=== PATIENT | female | born 2000 | race Hispanic/Latino ===

== ENCOUNTER 2025-03-31 22:12 | Emergency (ER) | payer SELFPAY ==
--- NOTE | ~2025-03-31 | XR_ITS ---
CHEST RADIOGRAPH CLINICAL HISTORY: RUQ abd pain . COMPARISON: None available TECHNIQUE: Single portable view of the chest. FINDINGS The cardiomediastinal silhouette is unremarkable. The lungs are clear. IMPRESSION: No focal infiltrate or effusion. Reviewed, dictated and finalized at location A.
--- NOTE | ~2025-03-31 | US_ITS ---
Pelvic ultrasound. Clinical History: Right ovarian torsion Technique: Realtime transabdominal and transvaginal scanning of the pelvis was performed. Color flow Doppler and Doppler spectral analysis were performed. Findings: The uterus is anteverted. The endometrial stripe has a thickness of [address] No focal mass is identified. The right ovary measures 3.2 x 1.0 x 2.4 cm. Questionable right adnexal mass or other indeterminate lesion adjacent to the right ovary with extensive internal flow on color imaging. Vascular flow present in the right ovary and color Doppler imaging. The left ovary is not visualized. No significant left ovarian or adnexal mass is seen. There is no evidence of free fluid in the cul de sac. Impression: Unremarkable right ovary. Left ovary not visualized. Questionable right adnexal mass with indeterminate lesion adjacent to the right ovary with extensive vascular flow within it on color imaging. This corresponds with the hyperdense/enhancing lesion on CT. Consider follow-up pre and postcontrast MR to further evaluate. IUD in place. Reviewed, dictated and finalized at location . Impression: Unremarkable right ovary. Left ovary not visualized. Questionable right adnexal mass with indeterminate lesion adjacent to the right ovary with extensive vascular flow within it on color imaging. This correspond s with the hyperdense/enhancing lesion on CT. Consider follow-up pre and postco ntrast MR to further evaluate. IUD in place.
--- NOTE | ~2025-03-31 | CT_ITS ---
CLINICAL INDICATION: Right upper quadrant pain COMPARISON: None. TECHNIQUE: Multiple contiguous axial images of the abdomen and pelvis were performed following the administration of with 100 mL Omnipaque-350 intravenous contrast The dose-length product (DLP) was 378.98 mGy-cm. Automated exposure control and iterative reconstruction technique were employed. FINDINGS/OBSERVATIONS: Visualized lower thorax: The bilateral lung bases are clear. The heart is of normal size, without pericardial effusion. Small hiatal hernia is present. Liver: The liver demonstrates homogeneously decreased enhancement and is enlarged measuring 20 cm in longitudinal dimension. Gallbladder and biliary system: The gallbladder is only minimally distended, and otherwise unremarkable. Pancreas: The pancreas enhances homogeneously without ductal dilatation. Spleen: The spleen enhances homogeneously and is not enlarged. Kidneys: The bilateral kidneys enhance symmetrically without hydronephrosis or renal calculi. Adrenal glands: Unremarkable. Gastrointestinal tract: The rectosigmoid colon courses through the inflammatory change within the pelvis, but is decompressed, and otherwise unremarkable. Appendix: The air-filled appendix is of normal caliber (axial series, images 125 - 144). Vasculature: Unremarkable. Lymph nodes: No pathologically enlarged or morphologically suspicious lymph nodes within the retroperitoneum or at the root of the mesentery. Pelvic structures: The bladder demonstrates markedly thickened solorzano and significant surrounding inflammatory change for which cystitis is suspected. The right ovary is markedly hyperemic and poorly delineated significant surrounding inflammatory change. The uterus is retroverted and antral flexed. An intrauterine device is identified. A tubular shaped focus absence of attenuation within the deep pelvis, representing a feminine hygiene device, consistent with patient's history. Body wall and musculoskeletal: No significant degenerative disease within the lower thoracic or lumbosacral spine. IMPRESSION: Markedly thickened bladder wall with significant surrounding inflammatory change or cystitis is suspected. The right ovary is markedly hyperemic poorly delineated on CT examination. Fatty infiltration of an enlarged liver. Gallbladder and appendix are unremarkable. Reviewed, dictated and finalized at location A. IMPRESSION: Markedly thickened bladder wall with significant surrounding inflammatory reagan e or cystitis is suspected. The right ovary is markedly hyperemic poorly delineated on CT examination. Fatty infiltration of an enlarged liver. Gallbladder and appendix are unremarkable.
[2025-03-31 22:30] VITALS: BP 148/76; PULSE 90; RESP 15; TEMP 36.7; O2SAT 100
[2025-03-31 22:32] VITALS: BP 148/76; PULSE 91; RESP 20; O2SAT 100
[2025-03-31 22:51] LABS: BEDSIDEPREGUCG Negative (Negative)
[2025-03-31 22:56] LABS: Hematocrit 37.3 % (37.0-47.0); Hemoglobin 12.1 g/dL (12.0-15.0); Immature Granulocyte Percent A 0.6 % (0-0.5); Lymphocytes Absolute Auto 1.73 K/mm3 (0.9-3.2); Mean Corpuscular HGB Conc 32.4 g/dl (32-36); Mean Corpuscular Hemoglobin 30.5 pg (26-34); Mean Corpuscular Volume 94.0 fl (80-100); Nucleated Red Blood Cells Absolute Auto 0.000 K/mm3 (0.0-0.012); Nucleated Red Blood Cells Perc 0.0 % (0.0-0.2); Platelet Count Result 462 k/mm3 (150-375); Red Blood Count 3.97 M/mm3 (4.2-5.4); White Blood Count 11.0 K/mm3 (4.5-10.0)
[2025-03-31 23:01] LABS: Add Urine Microscopic? YES; Appearance Urine Clear (Clear); Glucose Urine UA Negative (Negative); Leukocyte Esterase Ur 1+ LEU/UL (Negative); Nitrate Urine Negative (Negative); Non Pathogenic Casts 0-2; Specific Grav Ur 1.026 (1.001-1.035)
[2025-03-31 23:06] LABS: Alanine Aminotransferase 26 U/L (6-35); Albumin Level 4.2 g/dL (3.5-5.1); Alkaline Phosphatase 87 U/L (38-126); Anion Gap 9 mmol/L (4-12); Aspartate Amino Transferase 38 U/L (14-36); Bilirubin,Total 0.3 mg/dL (0.2-1.3); Blood Urea Nitrogen 13 mg/dL (7-17); Calcium 9.0 mg/dL (8.4-10.2); Carbon Dioxide 23 mmol/L (22-30); Chloride 107 mmol/L (98-107); Estimated Glomerular Filt Rate > 60; Glucose 169 mg/dL (65-110); Lipase 52 U/L (23-300); Potassium 3.6 mmol/L (3.4-5.0); Sodium 139 mmol/L (137-145); Total Protein 8.0 g/dL (6.3-8.2)
[2025-03-31 23:15] VITALS: PULSE 81; RESP 14; O2SAT 98
--- NOTE | 2025-03-31 23:29 | ED.ABDPAIN ---
HPI - Abdominal Pain General Chief Complaint: Abdominal Pain <Sommer Nunn PA-C - Last Filed: 04/01/25 18:38> Stated Complaint: RUQ pain since this AM <Sommer Nunn PA-C - Last Filed: 04/01/25 18:38> Time Seen by Provider: 03/31/25 22:39 <Sommer Nunn PA-C - Last Filed: 04/01/25 18:38> History of Present Illness HPI narrative: 24-year-old Indonesian-speaking female with no reported past medical history presents emergency department for right upper quadrant abdominal pain x1 day and irregular menstrual cycle for the past month. Interpretive services used throughout patient's visit. Patient states for the past 2 weeks she has had abdominal ?inflammation? and bloating. This morning she began developing focal pain to the right upper quadrant she describes as a cramping sensation that is worse with deep inspiration. She does not believe her pain is affected by eating or drinking. She denies associated nausea, vomiting or diarrhea. Her last bowel movement was yesterday normal. She denies prior abdominal surgeries. She does endorse a cough and congestion. She denies recent surgeries or hospitalizations, fever, lower extremity edema, history of VTE, hemoptysis. Patient also notes she has had 2 menstrual cycles within the past month which is abnormal for her. She notes that she has a IUD in place that was placed 6 years ago. States she is due to have her IUD removed in February of 2026. She notes that she has had her IUD she normally has a period every 2-3 months, however she has had 2 periods within the past month which is abnormal. She states she had a 4 day period about 2 weeks ago and started her period again yesterday. She notes that she worse tampons but has not been saturating her tampons an hour. She also notes that she has had some ?itchiness? with urinating and suprapubic abdominal pain. She denies dysuria. She denies abnormal vaginal discharge or concern for STDs, however does admit that she is sexually active with 1 partner within the past 6 months and would like to be checked for STDs. She is not currently established with an functional architect. <Sommer Nunn PA-C - Last Filed: 04/01/25 18:38> Related Data Allergies/Adverse Reactions: Allergies Allergy/AdvReac Type Severity Reaction Status Date / Time No Known Allergies Allergy Verified 03/31/25 22:14 <Sommer Nunn PA-C - Last Filed: 04/01/25 18:38> Review of Systems Review of Systems: All systems reviewed & are unremarkable except as noted in HPI and below <Sommer Nunn PA-C - Last Filed: 04/01/25 18:38> Exam Narrative: GENERAL: Well-appearing, well-nourished, and in no acute distress. HEAD: Normocephalic, atraumatic. EYES: PERRLA and EOMI. ENT: Nares clear, no rhinorrhea or epistaxis. Mucous membranes moist. NECK: Supple. CHEST: Clear to auscultation. No respiratory distress. HEART: Regular rate and rhythm. No murmur heard. Normal peripheral pulses. ABDOMEN: Normoactive bowel sounds. Abdomen soft with tenderness to the right upper quadrant and suprapubic region. Negative Rao sign. No rebound or rigidity. No CVA tenderness : Chaperoned by YING Cardoza: Normal external genitalia. Mild bleeding in the vaginal vault. Cervical os is closed with IUD strings in expected position. No abnormal vaginal discharge. No lesions. No significant CMT, adnexal masses or tenderness. EXTREMITIES: Normal range of motion. No edema. SKIN: Warm, dry, no rash. NEURO: No focal deficits. Alert and oriented x3 <Sommer Nunn PA-C - Last Filed: 04/01/25 18:38> Course LEACH RUNNER/PA Physician Supervision This visit was performed by both a physician and an APC. For this patient encounter, I reviewed the LEACH RUNNER or PA documentation, treatment plan, and medical decision making and had [id number] time with this patient. I performed all aspects of the MDM as documented. <Jean Cruz MD - Last Filed: 04/01/25 05:24> Vital Signs Vital signs: Vital Signs Temperature 98.0 F 03/31/25 22:30 Pulse Rate 90 03/31/25 22:30 Respiratory Rate 15 03/31/25 22:30 Blood Pressure 148/76 H 03/31/25 22:30 Pulse Oximetry 100 03/31/25 22:30 Oxygen Delivery Room Air 03/31/25 22:30 Temperature 98.0 F 03/31/25 22:30 Pulse Rate 78 04/01/25 05:16 Respiratory Rate 16 04/01/25 05:16 Blood Pressure 112/78 04/01/25 05:16 Pulse Oximetry 99 04/01/25 05:16 Oxygen Delivery Room Air 03/31/25 22:30 <Sommer Nunn PA-C - Last Filed: 04/01/25 18:38> Vital Signs Temperature 98.0 F 03/31/25 22:30 Pulse Rate 90 03/31/25 22:30 Respiratory Rate 15 03/31/25 22:30 Blood Pressure 148/76 H 03/31/25 22:30 Pulse Oximetry 100 03/31/25 22:30 Oxygen Delivery Room Air 03/31/25 22:30 Temperature 98.0 F 03/31/25 22:30 Pulse Rate 78 04/01/25 05:16 Respiratory Rate 16 04/01/25 05:16 Blood Pressure 112/78 04/01/25 05:16 Pulse Oximetry 99 04/01/25 05:16 Oxygen Delivery Room Air 03/31/25 22:30 <Jean Cruz MD - Last Filed: 04/01/25 05:24> MDM - Abdominal Pain MDM Narrative Medical decision making narrative: 24-year-old Indonesian-speaking female presents emergency department for multiple medical complaints. Patient is reporting abdominal bloating and ?inflammation? for the past 2 weeks, right upper quadrant abdominal pain since this morning that is worse with inspiration and abnormal uterine bleeding. See HPI for further history. Triage vitals are stable. Patient is afebrile and nontoxic appearing. Exam is significant for the above. CBC shows leukocytosis of 11. Chemistries with an AST of 38, ALT, alk-phos and bilirubin are within normal limits. Lipase within normal limits. UA indicative of UTI with greater than 100 white blood cells and 1+ leuk esterase. Patient does have hematuria, however likely due to menstrual cycle. Urine cultures pending. Will start keflex. is negative. Chest x-ray shows no acute cardiopulmonary findings. Perc is negative. Trichomonas negative. Gonorrhea negative. Chlamydia is positive. Patient was treated with IM Rocephin and started on doxycycline for coverage. Given associated right upper quadrant pain, and concern for possible Oscar Mynor Isiah syndrome due to PID. Will extend patient's antibiotic coverage to 14 days and add on Flagyl. CT abdomen pelvis IMPRESSION: Markedly thickened bladder wall with significant surrounding inflammatory change or cystitis is suspected. The right ovary is markedly hyperemic poorly delineated on CT examination. Fatty infiltration of an enlarged liver. Gallbladder and appendix are unremarkable Given CT findings, transvaginal ultrasound obtained for further evaluation which is pending stat rad read at time of sign-out to Dr. Cruz. Patient was signed out to id pending ultrasound results. Ultrasound was obtained revealing no evidence concerning for tubo-ovarian abscess. Patient was started her IV antibiotics with Rocephin and Flagyl and doxy in the emergency department and was provided with scripts to continue the medications for PID. She was also provided with an ObGyn referral instructed to follow up within the next 3-5 days. Discharged home in stable condition. <Sommer Nunn PA-C - Last Filed: 04/01/25 18:38> 24-year-old Indonesian-speaking female presents emergency department for multiple medical complaints. Patient is reporting abdominal bloating and ?inflammation? for the past 2 weeks, right upper quadrant abdominal pain since this morning that is worse with inspiration and abnormal uterine bleeding. See HPI for further history. Triage vitals are stable. Patient is afebrile and nontoxic appearing. Exam is significant for the above. CBC shows leukocytosis of 11. Chemistries with an AST of 38, ALT, alk-phos and bilirubin are within normal limits. Lipase within normal limits. UA indicative of UTI with greater than 100 white blood cells and 1+ leuk esterase. Patient does have hematuria, however likely due to menstrual cycle. Urine cultures pending. Will start keflex. is negative. Chest x-ray shows no acute cardiopulmonary findings. Perc is negative. Trichomonas negative. Gonorrhea negative. Chlamydia is positive. Patient was treated with IM Rocephin and started on doxycycline for coverage. Given associated right upper quadrant pain, and concern for possible Oscar Mynor Isiah syndrome due to PID. Will extend patient's antibiotic coverage to 14 days and add on Flagyl. CT abdomen pelvis IMPRESSION: Markedly thickened bladder wall with significant surrounding inflammatory change or cystitis is suspected. The right ovary is markedly hyperemic poorly delineated on CT examination. Fatty infiltration of an enlarged liver. Gallbladder and appendix are unremarkable Given CT findings, transvaginal ultrasound obtained for further evaluation which is pending stat rad read at time of sign-out to Dr. Cruz. Patient was signed out to me pending ultrasound results. Ultrasound was obtained revealing no evidence concerning for tubo-ovarian abscess. Patient was started her IV antibiotics with Rocephin and Flagyl and doxy in the emergency department and was provided with scripts to continue the medications for PID. She was also provided with an ObGyn referral instructed to follow up within the next 3-5 days. Discharged home in stable condition. <Jean Cruz MD - Last Filed: 04/01/25 05:24> Lab Data Result diagrams: 03/31/25 22:48 03/31/25 22:48 <Sommer Nunn PA-C - Last Filed: 04/01/25 18:38> Labs: Lab Results 03/31/25 03/31/25 04/01/25 Range/Units 22:48 22:49 05:22 WBC 11.0 H (4.5-10.0) K/mm3 RBC 3.97 L (4.2-5.4) M/mm3 Hgb 12.1 (12.0-15.0) g/dL Hct 37.3 (37.0-47.0) % MCV 94.0 (80-100) fl MCH 30.5 (26-34) pg MCHC 32.4 (32-36) g/dl RDW 13.4 (11.5-14.5) % Plt Count 462 H (150-375) k/mm3 MPV 9.0 (7.4-10.4) fl Immature Gran % (Auto) 0.6 H (0-0.5) % Neut % (Auto) 71.3 (45.5-73.1) % Lymph % (Auto) 15.8 L (18.3-44.2) % [place] % (Auto) 8.6 H (2.6-8.5) % Eos % (Auto) 3.2 (0-4.4) % Baso % (Auto) 0.5 (0.2-1.2) % Lymph # (Auto) 1.73 (0.9-3.2) K/mm3 [place] # (Auto) 0.9 H (0.1-0.6) K/mm3 Eos # (Auto) 0.4 H (0-0.3) K/mm3 Baso # (Auto) 0.1 (0.0-0.1) K/mm3 Abs Immat Gran (auto) 0.07 H (0.00-0.031) K/mm3 Absolute Neuts (auto) 7.8 H (1.3-6.7) K/mm3 Absolute Nucleated RBC 0.000 (0.0-0.012) K/mm3 Nucleated RBC % 0.0 (0.0-0.2) % PT 14.8 H (11.1-14.7) Seconds INR 1.1 APTT 36.4 (22.3-36.8) Seconds Sodium 139 (137-145) mmol/L Potassium 3.6 (3.4-5.0) mmol/L Chloride 107 (98-107) mmol/L Carbon Dioxide 23 (22-30) mmol/L Anion Gap 9 (4-12) mmol/L BUN 13 (7-17) mg/dL Creatinine 0.43 L (0.7-1.0) mg/dL Estim Creat Clear Calc Not Reportable Estimated GFR > 60 (59 - ) Glucose 169 H (65-110) mg/dL Calcium 9.0 (8.4-10.2) mg/dL Total Bilirubin 0.3 (0.2-1.3) mg/dL AST 38 H (14-36) U/L ALT 26 (6-35) U/L Alkaline Phosphatase 87 (38-126) U/L Total Protein 8.0 (6.3-8.2) g/dL Albumin 4.2 (3.5-5.1) g/dL Lipase 52 (23-300) U/L Urine Color Yellow (Yellow) Urine Appearance Clear (Clear) Urine pH 5.5 (5.0-9.0) Ur Specific [place] 1.026 (1.001-1.035) Urine Protein Trace (Negative) mg/dL Urine Glucose (UA) Negative (Negative) mg/dL Urine Ketones Negative (Negative) mg/dL Ur Blood (Man) 2+ H (Negative) Urine Nitrate Negative (Negative) Urine Bilirubin Negative (Negative) Urine Urobilinogen 1.0 (<2.0) mg/dL Leukocyte Esterase Rfl 1+ H (Negative) DOROTHY/UL Urine RBC 21-50 H (0-2) /hpf Urine WBC >100 H (0-3) /hpf Ur Squamous Epith Cells Few (Few) /hpf Urine Bacteria None seen /hpf Urine Casts 0-2 POC Urine HCG, Qual Negative (Negative) C. trachomatis (PCR) Detected A (NOT DETECTE) N. gonorrhoeae (PCR) Not detected (NOT DETECTE) T. vaginalis (PCR) Not detected (NOT DETECTE) Bact Vaginosis Panel Cancelled <Sommer Nunn PA-C - Last Filed: 04/01/25 18:38> Lab Results 03/31/25 03/31/25 04/01/25 Range/Units 22:48 22:49 05:22 WBC 11.0 H (4.5-10.0) K/mm3 RBC 3.97 L (4.2-5.4) M/mm3 Hgb 12.1 (12.0-15.0) g/dL Hct 37.3 (37.0-47.0) % MCV 94.0 (80-100) fl MCH 30.5 (26-34) pg MCHC 32.4 (32-36) g/dl RDW 13.4 (11.5-14.5) % Plt Count 462 H (150-375) k/mm3 MPV 9.0 (7.4-10.4) fl Immature Gran % (Auto) 0.6 H (0-0.5) % Neut % (Auto) 71.3 (45.5-73.1) % Lymph % (Auto) 15.8 L (18.3-44.2) % [place] % (Auto) 8.6 H (2.6-8.5) % Eos % (Auto) 3.2 (0-4.4) % Baso % (Auto) 0.5 (0.2-1.2) % Lymph # (Auto) 1.73 (0.9-3.2) K/mm3 [place] # (Auto) 0.9 H (0.1-0.6) K/mm3 Eos # (Auto) 0.4 H (0-0.3) K/mm3 Baso # (Auto) 0.1 (0.0-0.1) K/mm3 Abs Immat Gran (auto) 0.07 H (0.00-0.031) K/mm3 Absolute Neuts (auto) 7.8 H (1.3-6.7) K/mm3 Absolute Nucleated RBC 0.000 (0.0-0.012) K/mm3 Nucleated RBC % 0.0 (0.0-0.2) % PT 14.8 H (11.1-14.7) Seconds INR 1.1 APTT 36.4 (22.3-36.8) Seconds Sodium 139 (137-145) mmol/L Potassium 3.6 (3.4-5.0) mmol/L Chloride 107 (98-107) mmol/L Carbon Dioxide 23 (22-30) mmol/L Anion Gap 9 (4-12) mmol/L BUN 13 (7-17) mg/dL Creatinine 0.43 L (0.7-1.0) mg/dL Estim Creat Clear Calc Not Reportable Estimated GFR > 60 (59 - ) Glucose 169 H (65-110) mg/dL Calcium 9.0 (8.4-10.2) mg/dL Total Bilirubin 0.3 (0.2-1.3) mg/dL AST 38 H (14-36) U/L ALT 26 (6-35) U/L Alkaline Phosphatase 87 (38-126) U/L Total Protein 8.0 (6.3-8.2) g/dL Albumin 4.2 (3.5-5.1) g/dL Lipase 52 (23-300) U/L Urine Color Yellow (Yellow) Urine Appearance Clear (Clear) Urine pH 5.5 (5.0-9.0) Ur Specific [place] 1.026 (1.001-1.035) Urine Protein Trace (Negative) mg/dL Urine Glucose (UA) Negative (Negative) mg/dL Urine Ketones Negative (Negative) mg/dL Ur Blood (Man) 2+ H (Negative) Urine Nitrate Negative (Negative) Urine Bilirubin Negative (Negative) Urine Urobilinogen 1.0 (<2.0) mg/dL Leukocyte Esterase Rfl 1+ H (Negative) DOROTHY/UL Urine RBC 21-50 H (0-2) /hpf Urine WBC >100 H (0-3) /hpf Ur Squamous Epith Cells Few (Few) /hpf Urine Bacteria None seen /hpf Urine Casts 0-2 POC Urine HCG, Qual Negative (Negative) C. trachomatis (PCR) Detected A (NOT DETECTE) N. gonorrhoeae (PCR) Not detected (NOT DETECTE) T. vaginalis (PCR) Not detected (NOT DETECTE) Bact Vaginosis Panel Cancelled <Jean Cruz MD - Last Filed: 04/01/25 05:24> Imaging Data Radiologist's impression: ITS Impressions Chest X-Ray 03/31/25 23:31 IMPRESSION: No focal infiltrate or effusion. Abdomen/Pelvis CT 03/31/25 23:51 IMPRESSION: Markedly thickened bladder wall with significant surrounding inflammatory change or cystitis is suspected. The right ovary is markedly hyperemic poorly delineated on CT examination. Fatty infiltration of an enlarged liver. Gallbladder and appendix are unremarkable. Pelvic/Transvag US 04/01/25 05:46 Impression: Unremarkable right ovary. Left ovary not visualized. Questionable right adnexal mass with indeterminate lesion adjacent to the right ovary with extensive vascular flow within it on color imaging. This corresponds with the hyperdense/enhancing lesion on CT. Consider follow-up pre and postcontrast MR to further evaluate. IUD in place. <Sommer Nunn PA-C - Last Filed: 04/01/25 18:38> ITS Impressions Chest X-Ray 03/31/25 23:31 IMPRESSION: No focal infiltrate or effusion. Abdomen/Pelvis CT 03/31/25 23:51 IMPRESSION: Markedly thickened bladder wall with significant surrounding inflammatory change or cystitis is suspected. The right ovary is markedly hyperemic poorly delineated on CT examination. Fatty infiltration of an enlarged liver. Gallbladder and appendix are unremarkable. Pelvic/Transvag US 04/01/25 05:46 Impression: Unremarkable right ovary. Left ovary not visualized. Questionable right adnexal mass with indeterminate lesion adjacent to the right ovary with extensive vascular flow within it on color imaging. This corresponds with the hyperdense/enhancing lesion on CT. Consider follow-up pre and postcontrast MR to further evaluate. IUD in place. <Jean Cruz MD - Last Filed: 04/01/25 05:24> Discharge Plan Discharge Clinical Impression: Chlamydia, UTI (urinary tract infection), Acute PID (pelvic inflammatory disease) <Sommer Nunn PA-C - Last Filed: 04/01/25 18:38> Patient Disposition: Home <Sommer Nunn PA-C - Last Filed: 04/01/25 18:38> Condition: Improved <DONNA Limon Last Filed: 04/01/25 18:38> Instructions: Antibiotic Form, Pelvic Inflammatory Disease (DC), Chlamydia (ED) <Sommer Nunn PA-C - Last Filed: 04/01/25 18:38> Additional Instructions: Please take the prescribed antibiotic as instructed for urinary tract infection and your chlamydia infection. Follow-up with the OBGYN you were provided with today within the next 3-5 days and return to the ED if any new or worsening symptoms develop. <Sommer Nunn PA-C - Last Filed: 04/01/25 18:38> Patient Language: Indonesian <Sommer Nunn PA-C - Last Filed: 04/01/25 18:38> Prescriptions: New metronidazole 500 mg tablet 500 mg PO BID 14 Days Qty: 28 0RF doxycycline hyclate 100 mg capsule 100 mg PO BID 14 Days Qty: 28 0RF cephalexin 500 mg capsule 500 mg PO Q12H 7 Days Qty: 14 0RF <Sommer Nunn PA-C - Last Filed: 04/01/25 18:38> Follow-up/Referrals: PHYSICIAN,[facility]PORT [facility] [Primary Care Provider, Internal Medicine] Dioni Valdes MD [Physician, FRONT DESK ATTENDANT] - 3 Days <Sommer Nunn PA-C - Last Filed: 04/01/25 18:38> Time of Disposition: 05:03 <Sommer Nunn PA-C - Last Filed: 04/01/25 18:38> 05:03 <Jean Cruz MD - Last Filed: 04/01/25 05:24>
[2025-03-31 23:35] VITALS: O2SAT 98
[2025-03-31] MEDS: KETOROLAC 30 MG/ML VIAL (*BKC) IV PUSH (23:35)
[2025-03-31 23:36] VITALS: BP 122/75; O2SAT 100
--- NOTE | 2025-03-31 23:40 | PC.NURSE ---
Pt taken to CT on stretcher
[2025-03-31 23:49] VITALS: BP 138/48; PULSE 83; RESP 17; O2SAT 99
[2025-03-31 23:50] LABS: INR 1.1; Prothrombin Time 14.8 Seconds (11.1-14.7)
[2025-03-31 23:51] LABS: Partial Thromboplastin Time 36.4 Seconds (22.3-36.8)
[2025-04-01 00:54] LABS: Trichomonas Vag PCR NOT DETECTED (NOT DETECTE)
--- NOTE | 2025-04-01 01:03 | PC.NURSE ---
Pt taken to US in W/C
[2025-04-01 05:16] VITALS: BP 112/78; PULSE 78; RESP 16; O2SAT 99
[2025-04-01] MEDS: DOXYCYCLINE HYCLATE 100 MG TABLET PO (05:23)
[2025-04-01] MEDS: cefTRIAXone 500 MG VIAL IM (05:25)
[2025-04-01] MEDS: WATER, STERILE FOR INJECTION 10 ML VIAL XX (05:28)
== END 2025-04-01 05:35 | disposition home or self-care (01) ==
PROVIDERS: Physician Assistant; Emergency Provider Emergency Medicine
DX: A56.11 Chlamydial female pelvic inflammatory disease (principal); N39.0 Urinary tract infection, site not specified; Z97.5 Presence of (intrauterine) contraceptive device
CPT/HCPCS: 36415; 71045; 74177; 76830; 76856; 80053; 81001; 81025; 83690; 85025; 85610; 85730; 87086; 87491; 87591; 87661; 87798; 96372; 96374; 99284; A9270; J0696; J1885; Q9967